=== PATIENT | male | born 1960 | race Caucasian/White ===

== ENCOUNTER 2020-09-21 08:38 | Day surgery (SDC) | payer MEDICARE, OTHER ==
[~2020-09-21] VITALS: Ht 188 cm; Wt 72.3 kg
[~2020-09-21 08:38] MED LIST: ALEN70TA2 GT; AMLO5TAB66 GT; ASCO-363 GT; BISA10SU8 PR; CALC-895 PO; DOXA1TAB6 GT; DSSL GT; FOLI1TAB15 GT; HEPA1DIS9 IM; LEVE500L GT; METO10L GT; MIRALAX PO; OXYB5TAB15 GT; ZOLP-280 PO; [UNRECOGNIZED DRUG - CODE] GT
[2020-09-21] MEDS ORDERED: PROPOFOL 1% 20 ML VIAL IVP ONE (08:39)
[2020-09-21] MEDS ORDERED: SODIUM CHLORIDE 0.9% 1,000 ML IV ONE (09:00)
[2020-09-21 09:52] LABS: COVID AG,FIA SOURCE NASOPHARYNGEAL
[2020-09-21] MEDS ORDERED: FLUT1BLS8 IH (10:30)
[2020-09-21] MEDS ORDERED: METO25 GT (10:30)
[2020-09-21] MEDS ORDERED: ASCO500 GT (10:30)
[2020-09-21] MEDS ORDERED: LANS30CA56 GT (10:30)
[2020-09-21] MEDS ORDERED: SENN8.8S6 GT (10:30)
[2020-09-21] MEDS ORDERED: ONDA4SOL GT (10:30)
[2020-09-21] MEDS ORDERED: FAMO20 GT (10:30)
== END 2020-09-21 13:05 | disposition home or self-care (01) ==
LOC: SURGERY 08:38
PROVIDERS: ATTEND Specialist
DX: K94.13 Enterostomy malfunction (principal); K22.10 Ulcer of esophagus without bleeding; J44.9 Chronic obstructive pulmonary disease, unspecified; K21.9 Gastro-esophageal reflux disease without esophagitis; Z98.890 Other specified postprocedural states; G80.8 Other cerebral palsy; Z79.899 Other long term (current) drug therapy
CPT/HCPCS: 43246; 87426; C1769; C9803; J2704